=== PATIENT | female | born 1975 | race American Indian/Alaskan Native ===

== ENCOUNTER 2017-02-04 15:14 | Outpatient (CLI) | payer BC ==
--- NOTE | 2017-02-04 15:52 | Ultrasound Report ---
LEFT BREAST ULTRASOUND: 02/04/17 15:14:00 CLINICAL: Ten weeks . Lumpiness in the upper outer left breast. COMPARISON: None. FINDINGS: Ultrasound of the left breast(including all four quadrants and the retroareolar area) was performed and demonstrated normal fatty and fibroglandular structures. No mass, cyst or shadowing. IMPRESSION: Normal left breast ultrasound. BI-RADS 1 - - Negative RECOMMENDATION: Clinical followup and routine mammographic screening.
== END 2017-02-04 15:15 | disposition home or self-care (01) ==
LOC: SPVWC 15:14
PROVIDERS: ATTEND Obstetrics & Gynecology
DX: N63 Unspecified lump in breast (principal)

== ENCOUNTER 2018-05-05 08:50 | Outpatient (CLI) | payer BC ==
--- NOTE | 2018-05-05 15:47 | Fluoroscopy Report ---
UPPER GI AIR CONTRAST: History: Gastroesophageal reflux disease without esophagitis FINDINGS: Flask Fitter film of the abdomen demonstrates a lap band device in the left paraspinal region which appears in good position. The phi angle measures 41 degrees. Cholecystectomy changes are also noted. 27 fluoroscopic images were captured during this exam. Deglutition was normal. The esophagus is normal caliber and mucosal pattern. Occasional tertiary contractions were witnessed consistent with mild spasm. There is easy passage of the contrast agent through the lap band device. No evidence for slippage or erosion. The gastric cavity is normal caliber and mucosal pattern. The duodenal bulb and duodenal sweep are within normal limits. The port to the lap band in the left abdomen appears to be upside down IMPRESSION: Mild esophageal spasm was witnessed during this exam which could represent mild esophagitis. No episodes of reflux were witnessed during this exam. Normal appearance of the lap band device other than the port, see above.
== END 2018-05-05 08:51 | disposition home or self-care (01) ==
LOC: FLUORO 08:50
PROVIDERS: ATTEND Specialist
DX: K21.0 Gastro-esophageal reflux disease with esophagitis (principal)
CPT/HCPCS: 74247

== ENCOUNTER 2018-07-12 08:34 | Outpatient (CLI) | payer BC, MEDICAID ==
--- NOTE | 2018-07-12 15:19 | Mammography Report ---
BILATERAL DIGITAL SCREENING MAMMOGRAM WITH CAD:07/12/18 09:00:00 CLINICAL: Baseline screening. FINDINGS: The breasts are heterogeneously dense, which may obscure small masses.No mass, architectural distortion or suspicious calcifications. IMPRESSION: No mammographic evidence of malignancy. BI-RADS CATEGORY: 1 -- Negative RECOMMENDATION: Routine mammographic screening in one year. ACR BI-RADS MAMMOGRAPHIC CODES: 0 = Needs additional imaging evaluation; 1 = Negative; 2 = Benign; 3 = Probably benign; 4 = Suspicious; 5 = Malignant; 6 = Known biopsy-proven malignancy COMMENT: 1. Dense breast tissue, i.e., adenosis, fibrocystic changes, etc., may obscure an underlying neoplasm. 2. Approximately 10% of cancers are not detected with mammography. 3. A negative mammography report should not delay biopsy if a clinically suspicious mass is present.
== END 2018-07-12 08:35 | disposition home or self-care (01) ==
LOC: MAMMO 08:34
PROVIDERS: ATTEND Obstetrics & Gynecology
DX: Z12.31 Encounter for screening mammogram for malignant neoplasm of breast (principal)
CPT/HCPCS: 77067